=== PATIENT | female | born 1985 | race Caucasian/White ===

== ENCOUNTER 2016-12-15 17:47 | Emergency (ER) | payer SELFPAY ==
[~2016-12-15] VITALS: Ht 162.6 cm; Wt 129.0 kg
[~2016-12-15 17:47] MED LIST: ANAPROX275 MG OR; BACTRIM DS1 TAB PO; BUSPAR5 MG PO; CEPHALEXIN500 M1 OR; CIPRO500 MG OR; CLINDAMYCIN11 EX; DOXYCYCL HYC100 M4 PO; FLEXERIL PO; HYDROCHLOR12.5 MG/CA PO; KEFLEX500 MG PO; LAMICTAL25 M2 PO; LASIX 20 MG20 MG/TAB OR; LASIX40 MG OR; LEXAPRO10 MG PO; LORTAB 5-325 MG1 TAB PO; LORTAB5 PO; METFORMIN500 M2 PO; METFORMIN500 MG PO; MOTRIN800 MG PO; NO HOME MEDS; POT CL MICRO20 MEQ OR; ULTRAM50 MG OR; VIBRAMYCIN100 MG OR
[2016-12-15 18:33] VITALS: BP 131/85
[2016-12-15] MEDS ORDERED: BACTRIM DS1 TAB PO (18:33)
== END 2016-12-15 18:48 | disposition home or self-care (01) | DRG 603 ==
LOC: ED 17:47
PROC: 0H97XZZ Drainage of Abdomen Skin, External Approach (ICD-10-PCS; principal; 2016-12-15)
DX: L02.211 Cutaneous abscess of abdominal wall (principal)

== ENCOUNTER 2020-04-15 19:01 | Emergency (ER) | payer SELFPAY ==
[~2020-04-15] VITALS: Ht 162.6 cm; Wt 136.0 kg
[2020-04-15 19:50] LABS: IMMATURE GRANULOCYTES 0.3 % (0.0-5.0); MEAN CORPUSCULAR HGB 22.5 pG CALC (26.0-32.0); MEAN CORPUSCULAR HGB CONC 29.9 g/dL CAL (32.0-36.0); NEUT# 6.84 thou/uL (2.00-7.15); RED BLOOD COUNT 4.32 mill/uL (4.20-5.60); RED CELL DISTRI WIDTH 14.7 % (11.5-15.5)
[2020-04-15 19:51] LABS: HEMATOCRIT 32.4 % (37.0-47.0); HEMOGLOBIN 9.7 g/dl (12.0-16.0)
[2020-04-15 20:07] LABS: ALBUMIN 3.6 g/dL (3.2-5.0); ALKALINE PHOSPHATASE 84 u/l (38-126); ANION GAP 10 (6-22 (CALC)); BILIRUBIN, TOTAL 0.3 mg/dL (0.0-1.4); BUN 11 mg/dL (7-17); BUN/CREATININE RATIO 16 (12-20 (CALC)); CARBON DIOXIDE 24 mmol/l (22-30); CHLORIDE 110 mmol/l (95-108); CREATININE 0.7 mg/dL (0.5-1.0); GFR > 60 ML/MIN (>=60 (CALC)); GFR FOR AFR.AMER. > 60 ML/MIN (>=60 (CALC)); SGOT/AST 24 u/l (14-36); SODIUM 140 mmol/l (137-146); TOTAL PROTEIN 6.5 g/dL (6.3-8.2)
[2020-04-15 20:07] LABS: URINE BILIRUBIN - DIPSTICK NEGATIVE (NEGATIVE); URINE BLOOD DIPSTICK LARGE (NEGATIVE); URINE COLOR YELLOW; URINE GLUCOSE - DIPSTICK NEGATIVE (NEGATIVE); URINE KETONE NEGATIVE (NEGATIVE); URINE LEUK ESTERASE NEGATIVE (NEGATIVE); URINE NITRITE - DIPSTICK NEGATIVE (Negative); URINE PH 7.5 (4.5-8.0); URINE PROTEIN - DIPSTICK NEGATIVE (NEG-TRACE); URINE SPECIFIC GRAVITY 1.015; URINE UROBILINOGEN - DIPSTICK 0.2 E.U./dL (0.2)
[2020-04-15 20:29] LABS: URINE RBC 25-50 RBC/hpf (0-5); URINE SQUAMOUS EPITHELIAL CELL FEW EPI/hpf (0-FEW)
[2020-04-15 20:30] LABS: URINE AMORPH SEDIMENT FEW hpf (NONE-FEW); URINE BACTERIA FEW hpf
[2020-04-15] MEDS ORDERED: ORTHO-NOVUM 1/31 TAB PO (20:41)
[2020-04-15] MEDS ORDERED: FERR SULFATE325 MG PO (20:41)
[2020-04-15] MEDS ORDERED: LISINOP/HCTZ1 TA2 PO (20:41)
[2020-04-15 21:08] VITALS: BP 140/63
== END 2020-04-15 21:08 | disposition home or self-care (01) | DRG 761 ==
LOC: ED 19:01
PROVIDERS: Family Medicine
DX: N93.9 Abnormal uterine and vaginal bleeding, unspecified (principal); R60.9 Edema, unspecified; I10 Essential (primary) hypertension; E11.9 Type 2 diabetes mellitus without complications; E28.2 Polycystic ovarian syndrome; F17.200 Nicotine dependence, unspecified, uncomplicated

== ENCOUNTER 2020-10-24 19:40 | Emergency (ER) | payer SELFPAY ==
[~2020-10-24] VITALS: Ht 162.6 cm; Wt 132.0 kg
[~2020-10-24 19:40] MED LIST changes: +FERR SULFATE325 MG PO; +LISINOP/HCTZ1 TA2 PO; +ORTHO-NOVUM 1/31 TAB PO
[2020-10-24] MEDS ORDERED: VOLTAREN75 MG PO (22:25)
[2020-10-24] MEDS ORDERED: ORPHENADRINE100 MG PO (22:25)
[2020-10-24 22:42] VITALS: BP 150/74
== END 2020-10-24 22:42 | disposition home or self-care (01) | DRG 563 ==
LOC: ED 19:40
DX: S39.012A Strain of muscle, fascia and tendon of lower back, initial encounter (principal); E11.9 Type 2 diabetes mellitus without complications; I10 Essential (primary) hypertension; E28.2 Polycystic ovarian syndrome; F17.200 Nicotine dependence, unspecified, uncomplicated; X50.0XXA Overexertion from strenuous movement or load, initial encounter; Y93.89 Activity, other specified; Y92.89 Other specified places as the place of occurrence of the external cause

== ENCOUNTER 2020-12-31 13:40 | Emergency (ER) | payer SELFPAY ==
[~2020-12-31] VITALS: Ht 162.6 cm; Wt 131.0 kg
[~2020-12-31 13:40] MED LIST changes: +ORPHENADRINE100 MG PO; +VOLTAREN75 MG PO
[2020-12-31] MEDS ORDERED: AMOXICILLIN875 MG PO (14:18)
[2020-12-31 14:48] VITALS: BP 167/86
== END 2020-12-31 14:48 | disposition home or self-care (01) | DRG 153 ==
LOC: ED 13:40
DX: H66.92 Otitis media, unspecified, left ear (principal); E11.9 Type 2 diabetes mellitus without complications; I10 Essential (primary) hypertension; F17.210 Nicotine dependence, cigarettes, uncomplicated

== ENCOUNTER 2021-01-23 12:14 | Emergency (ER) | payer OTHER ==
[~2021-01-23] VITALS: Ht 162.6 cm; Wt 114.0 kg
[~2021-01-23 12:14] MED LIST changes: +AMOXICILLIN875 MG PO
[2021-01-23 12:40] LABS: GFR > 60 ML/MIN (>=60 (CALC)); GFR FOR AFR.AMER. > 60 ML/MIN (>=60 (CALC))
[2021-01-23 12:48] LABS: HEMATOCRIT 33.2 % (37.0-47.0); IMMATURE GRANULOCYTES 0.4 % (0.0-5.0); MEAN CELL VOLUME 71.2 fL CALC (80.0-100.0); MEAN CORPUSCULAR HGB 21.5 pG CALC (26.0-32.0); MEAN CORPUSCULAR HGB CONC 30.1 g/dL CAL (32.0-36.0); NEUT# 7.42 thou/uL (2.00-7.15); RED BLOOD COUNT 4.66 mill/uL (4.20-5.60); RED CELL DISTRI WIDTH 18.2 % (11.5-15.5)
[2021-01-23 13:18] LABS: ALBUMIN 4.1 g/dL (3.2-5.0); ALKALINE PHOSPHATASE 82 u/l (38-126); ANION GAP 10 (6-22 (CALC)); BUN 11 mg/dL (7-17); BUN/CREATININE RATIO 17 (12-20 (CALC)); CARBON DIOXIDE 24 mmol/l (22-30); CHLORIDE 106 mmol/l (95-108); CREATININE 0.7 mg/dL (0.5-1.0); GFR > 60 ML/MIN (>=60 (CALC)); GFR FOR AFR.AMER. > 60 ML/MIN (>=60 (CALC)); LIPASE 76 u/l (23-300); POTASSIUM 3.7 mmol/l (3.5-5.1); SODIUM 137 mmol/l (137-146)
[2021-01-23 13:19] LABS: BILIRUBIN, TOTAL 0.5 mg/dL (0.0-1.4); SGOT/AST 43 u/l (14-36); TOTAL PROTEIN 8.1 g/dL (6.3-8.2)
[2021-01-23 14:49] VITALS: BP 146/79
== END 2021-01-23 14:56 | disposition home or self-care (01) | DRG 605 ==
LOC: ED 12:14
PROVIDERS: Family Medicine
DX: S80.12XA Contusion of left lower leg, initial encounter (principal); S80.812A Abrasion, left lower leg, initial encounter; S50.312A Abrasion of left elbow, initial encounter; R10.9 Unspecified abdominal pain; E11.9 Type 2 diabetes mellitus without complications; I10 Essential (primary) hypertension; F17.200 Nicotine dependence, unspecified, uncomplicated; V89.2XXA Person injured in unspecified motor-vehicle accident, traffic, initial encounter
CPT/HCPCS: Q9967

== ENCOUNTER 2021-02-15 18:13 | Emergency (ER) | payer SELFPAY ==
[~2021-02-15] VITALS: Ht 162.6 cm; Wt 134.0 kg
[2021-02-15 18:39] LABS: HEMATOCRIT 37.6 % (37.0-47.0); HEMOGLOBIN 11.5 g/dl (12.0-16.0); IMMATURE GRANULOCYTES 0.2 % (0.0-5.0); MEAN CELL VOLUME 72.7 fL CALC (80.0-100.0); MEAN CORPUSCULAR HGB 22.2 pG CALC (26.0-32.0); MEAN CORPUSCULAR HGB CONC 30.6 g/dL CAL (32.0-36.0); NEUT# 6.81 thou/uL (2.00-7.15); RED BLOOD COUNT 5.17 mill/uL (4.20-5.60); RED CELL DISTRI WIDTH 19.4 % (11.5-15.5)
[2021-02-15 18:51] LABS: ALBUMIN 3.8 g/dL (3.2-5.0); ALKALINE PHOSPHATASE 90 u/l (38-126); ANION GAP 12 (6-22 (CALC)); BUN 8 mg/dL (7-17); BUN/CREATININE RATIO 12 (12-20 (CALC)); CARBON DIOXIDE 24 mmol/l (22-30); CHLORIDE 107 mmol/l (95-108); CREATININE 0.7 mg/dL (0.5-1.0); GFR > 60 ML/MIN (>=60 (CALC)); GFR FOR AFR.AMER. > 60 ML/MIN (>=60 (CALC)); POTASSIUM 3.7 mmol/l (3.5-5.1); SGOT/AST 25 u/l (14-36); SODIUM 140 mmol/l (137-146); TOTAL PROTEIN 7.7 g/dL (6.3-8.2)
[2021-02-15 18:53] LABS: BILIRUBIN, TOTAL 0.2 mg/dL (0.0-1.4)
[2021-02-15 19:22] LABS: TSH, 3RD GENERATION 3.78 uIU/mL (0.47 - 4.68)
[2021-02-15] MEDS ORDERED: TORADOL PO (20:59)
[2021-02-15] MEDS ORDERED: LISINOP/HCTZ1 TA1 PO (20:59)
[2021-02-15 21:03] VITALS: BP 178/84
== END 2021-02-15 21:08 | disposition home or self-care (01) | DRG 313 ==
LOC: ED 18:13
PROVIDERS: Family Medicine
DX: R07.89 Other chest pain (principal); I10 Essential (primary) hypertension; E11.9 Type 2 diabetes mellitus without complications; F17.210 Nicotine dependence, cigarettes, uncomplicated

== ENCOUNTER 2024-08-16 15:48 | Emergency (ER) | payer SELFPAY ==
[~2024-08-16] VITALS: Ht 162.6 cm; Wt 146.0 kg
[~2024-08-16 15:48] MED LIST changes: +AMOXICILLIN500 M2 PO; +HYDROCHLOROT12.5 M1 PO; +LISINOP/HCTZ1 TA1 PO; +LISINOPRIL20 M1 PO; +TORADOL PO
[2024-08-16] MEDS ORDERED: KETOROLAC TROMETHAMINE 30 MG/ML SDV IM ONE (17:20)
[2024-08-16] MEDS ORDERED: ORPHENADRINE CITRATE 30 MG/ML AMP IM ONE (17:20)
[2024-08-16] MEDS ORDERED: predniSONE 20 MG/TAB PO ONE (17:25)
[2024-08-16] MEDS ORDERED: HYDROcodone 7.5 MG/Acetaminophen 325 MG/COMBO PO ONE (17:25)
[2024-08-16] MEDS ORDERED: cloNIDine HCL 0.1 MG/TAB PO ONE (19:35)
[2024-08-16 20:35] VITALS: BP 172/112
[2024-08-16 20:45] VITALS: BP 183/110
[2024-08-16] MEDS ORDERED: METHOCARBAMOL500 MG PO (20:53)
[2024-08-16] MEDS ORDERED: MEDDOSEPAK PO (20:53)
[2024-08-16] MEDS ORDERED: TRAMADOL HYDROC50 M1 PO (20:53)
[2024-08-16] MEDS ORDERED: NAPROXEN500 MG PO (20:53)
[2024-08-16 21:01] VITALS: BP 155/104
[2024-08-16 21:18] VITALS: BP 155/104
== END 2024-08-16 21:18 | disposition home or self-care (01) | DRG 563 ==
LOC: ED 15:48
DX: S39.012A Strain of muscle, fascia and tendon of lower back, initial encounter (principal); M51.16 Intervertebral disc disorders with radiculopathy, lumbar region
CPT/HCPCS: J2360